=== PATIENT | male | born 1980 | race African-American/Black ===

== ENCOUNTER 2017-05-09 15:59 | Emergency (ER) | payer OTHER ==
[~2017-05-09] VITALS: Ht 193 cm; Wt 122.5 kg
[2017-05-09] MEDS ORDERED: GUAIFEN-CODEINE10 ML PO (17:23)
[2017-05-09] MEDS ORDERED: LISINOPRIL10 MG PO (17:23)
== END 2017-05-09 18:19 | disposition home or self-care (01) ==
LOC: ER 15:59
DX: R04.0 Epistaxis (principal); R09.81 Nasal congestion; I10 Essential (primary) hypertension

== ENCOUNTER 2017-05-11 06:32 | Emergency (ER) | payer OTHER ==
[~2017-05-11] VITALS: Ht 193 cm; Wt 120.2 kg
[~2017-05-11 06:32] MED LIST: GUAIFEN-CODEINE10 ML PO; LISINOPRIL10 MG PO
[2017-05-11] MEDS ORDERED: BACTRIM DS TAB1 EACH PO (07:04)
[2017-05-11 08:20] VITALS: BP 165/124
== END 2017-05-11 08:20 | disposition home or self-care (01) ==
LOC: ER 06:32
DX: R04.0 Epistaxis (principal); I10 Essential (primary) hypertension

== ENCOUNTER 2018-04-15 03:53 | Emergency (ER) | payer OTHER ==
[~2018-04-15] VITALS: Ht 193 cm; Wt 136.1 kg
[~2018-04-15 03:53] MED LIST changes: +BACTRIM DS TAB1 EACH PO
[2018-04-15] MEDS ORDERED: LISINOPRIL10 MG PO (04:38)
[2018-04-15 04:40] VITALS: BP 200/128
== END 2018-04-15 07:10 | disposition home or self-care (01) ==
LOC: ER 03:53
DX: R04.0 Epistaxis (principal); I10 Essential (primary) hypertension

== ENCOUNTER 2018-06-18 03:22 | Inpatient (IN) | payer OTHER ==
[2018-06-18] VITALS (9 sets, daily range): BP systolic 157–222; BP diastolic 122–157
[~2018-06-18] VITALS: Ht 193 cm; Wt 147.4 kg
[2018-06-18 04:40] LABS: ABSOLUTE NEUTROPHILS 6.2 thou/uL (1.4-8.2); BASOPHILS 1.2 % (0.0-2.0); EOSINOPHILS 2.8 % (0.0-3.0); HEMATOCRIT 39.8 % (42.0-52.0); HEMOGLOBIN 12.8 gm/dL (14.0-18.0); LYMPHOCYTES 16.1 % (24.0-44.0); MCH 27.4 pg (26.0-34.0); MCHC 32.1 g/dL (28.0-37.0); MCV 85.4 fL (80.0-100.0); MONOCYTES 6.6 % (1.0-8.0); PLATELET COUNT 172 thou/uL (150-400); POLYS 73.3 % (36.0-66.0); RBC 4.66 mil/uL (4.50-6.00); RDW 16.3 % (10.5-14.5); WBC 8.4 thou/uL (4.0-11.0)
[2018-06-18 04:48] LABS: CALCIUM 9.5 mg/dL (8.5-10.1); POTASSIUM 3.5 mmol/L (3.5-5.1)
[2018-06-18 04:56] LABS: TROPONIN-I 0.09 ng/mL (<0.06)
[2018-06-18 06:31] LABS: AMP/METHAMP Negative (Negative); BARBITURATES Negative (Negative); BENZODIAZEPINES Negative (Negative); COCAINE Negative (Negative); METHADONE Negative (Negative); OPIATES Negative (Negative); PCP Negative (Negative)
[2018-06-18 06:42] LABS: URINE BILIRUBIN NEGATIVE (Negative); URINE BLOOD 1+ (Negative); URINE CLARITY CLEAR; URINE COLOR YELLOW; URINE GLUCOSE-RANDOM* NEGATIVE (Negative); URINE KETONES NEGATIVE (Negative); URINE LEUKOCYTES NEGATIVE (Negative); URINE NITRITE NEGATIVE (Negative); URINE PROTEIN (DIPSTICK) 2+ (Negative)
[2018-06-18 06:45] LABS: BACTERIA None Seen /HPF (None Seen); CASTS None Seen /LPF (None Seen); CRYSTALS None Seen /LPF (None Seen); SQUAMOUS None Seen /LPF (0-3); URINE RBC 0-2 Rare /HPF (0-2); URINE WBC None Seen /HPF (0-5)
[2018-06-18 15:48] LABS: URINE BILIRUBIN 1+ (Negative); URINE BLOOD TRACE (Negative); URINE CLARITY CLEAR; URINE COLOR YELLOW; URINE GLUCOSE-RANDOM* TRACE (Negative); URINE KETONES NEGATIVE (Negative); URINE LEUKOCYTES-REFLEX NEGATIVE (Negative); URINE NITRITE-REFLEX NEGATIVE (Negative); URINE PROTEIN (DIPSTICK) 3+ (Negative)
[2018-06-18 15:53] LABS: ICTOTEST (BILI CONFIRMATORY) Positive (Negative)
[2018-06-18 16:01] LABS: HYALINE CASTS 4-10 Moderate /LPF (None Seen); MUCUS 0-3 Light strn/LPF (None Seen)
[2018-06-18 16:02] LABS: BACTERIA-REFLEX None Seen /HPF (None Seen); CRYSTALS None Seen /LPF (None Seen); SQUAMOUS None Seen /LPF (0-3); URINE RBC 0-2 Rare /HPF (0-2); URINE WBC-REFLEX 0-5 Rare /HPF (0-5)
--- NOTE | 2018-06-18 17:25 | NUR ---
ASSUMED CARE AT 0715. PATIENT IN BED AWAKE AND ALERT. NO COMPLAINTS OF HEADACHE, DIZZINESS, NAUSEA OR CP. SBP 190'S BUT PATIENT DOES NOT FEEL BAD. CONCERNED WITH HIS SWOLLEN ANKLES. HAS A CONVERSATION ABOUT HIS NEED TO TAKE HIS MEDICATION AND CHECK HIS BLOOD SUGAR. HE WANTS TO BE COMPLIANT BUT DOES NOT HAVE INSURANCE AND NO PCP. BLANKET INSPECTOR CONSULTED TO SEE IS THERE IS ANY ASSISTANCE HE COULD QUALIFY FOR. HE IS UP AD DIANNA AND GETTING LASIX. WILL CONTINUE TO MONITOR BLOOD PRESSURE AND TREAT SBP>160
[2018-06-19 00:12] VITALS: BP 164/110
[2018-06-19 03:01] LABS: HEMATOCRIT 39.4 % (42.0-52.0); HEMOGLOBIN 12.5 gm/dL (14.0-18.0); MCHC 31.8 g/dL (28.0-37.0); MCV 84.8 fL (80.0-100.0); RBC 4.65 mil/uL (4.50-6.00); WBC 6.8 thou/uL (4.0-11.0)
[2018-06-19 03:16] LABS: ALBUMIN 3.1 g/dL (3.4-5.0); CALCIUM 8.9 mg/dL (8.5-10.1); CREATININE 1.7 mg/dL (0.7-1.3); POTASSIUM 3.2 mmol/L (3.5-5.1); TOTAL BILIRUBIN 2.5 mg/dL (<0.1-1.0); TOTAL PROTEIN 7.9 g/dL (6.4-8.2)
[2018-06-19 04:55] VITALS: BP 181/118
--- NOTE | 2018-06-19 05:37 | NUR ---
ASSUMED PT CARE AT 1900. PT A/OX4, VITAL SIGNS STABLE, BLOOD PRESSURE ELEVATED BUT MANAGED WITH BLOOD PRESSURE MEDICATION. ASSESSMENT CHARTED. NO COMPLAINTS OF PAIN, CHEST PAIN, OR SOB. PT RESTED COMFORTABLY, THROUGH THE NIGHT. PROGRESSING TOWARD PLAN OF CARE. WILL CONTINUE TO MONITOR.
--- NOTE | 2018-06-19 08:49 | EKG ---
[place] [address] [place] [address] ELECTROCARDIOGRAM REPORT Name: KATHRYN CARDONA Room #: 214-P ADM IN M.R.#: [id number] ������������������ Admission: 06/18/18 ������������������ Attend Phys: Jose A Payan MD Discharge: ������������������ Date of : 82 Report #: [id number] ����������������������������������������������������������������� [id number] THIS REPORT FOR: //name// [facility] ED Test Date: 2018-06-18 Test Time: 04:39:25 Pat Name: KATHRYN CARDONA Department: Room: 214 Gender: M Pss Delivery Professional: BRAD : 1980 Requested By: Marilee Mena Order Number: [id number] MD: Hai Joyner Measurements Intervals [place] Rate: 105 P: 20 WV: 169 QRS: -39 QRSD: 99 T: 132 QT: 391 QTc: 517 Interpretive Statements Sinus tachycardia Left atrial enlargement Inferior infarct, old Poor R wave progression Prolonged QT interval Baseline wander in lead(s) V4 No previous ECG available for comparison Electronically Signed On 06-19-2018 8:49:16 CDT by Hai Joyner [email or web address] ��������������������������������������������� <ELECTRONICALLY SIGNED> ���������������������������������������� By: Hai Joyner MD, [facility] ��������������������������������������������� 06/19/18 0849 0439 [id number] Hai Joyner MD, [facility] /EPI
--- NOTE | 2018-06-19 12:12 | 2DMMODE ---
[facility] [address] [place] [address] 2 D/M-MODE ECHOCARDIOGRAM Name: BRENDANKATHRYN Room #: 214-P ADM IN M.R.#: [id number] ������������� Admission: 06/18/18 ������������� Attend Phys: Siva Vargas Discharge: ��� ������������� ��� Date of : 82 Date of Service: 06/19/18 1212 �� Report #: [id number] �������� ��������������������������������������������[id number] THIS REPORT FOR: //name// APPROVED REPORT Study performed: 06/19/2018 11:07:12 EXAM: Comprehensive 2D, Doppler, and color-flow Echocardiogram Patient Location: Echo lab Room #: [facility] Status: routine BSA: 2.71 HR: 97 bpm BP: 181/118 mmHg Rhythm: Regular Other Information Study Quality: Good Indications Leg edema, CHF. Hx: HTN, DM. 2D Dimensions RVDd: 47.91 mm IVSd: 15.00 (7-11mm) LVOT Diam: 25.00 (18-24mm) LVDd: 56.00 mm PWd: 15.00 (7-11mm) Ascending Ao: 40.00 (22-36mm) LVDs: 48.00 (25-40mm) Aortic Root: 41.20 mm Volumes Left Atrial Volume (Systole) Single Plane 4CH: 90.62 mL Single Plane 2CH: 85.68 mL LA ESV Index: 36.00 mL/m2 Aortic Valve AoV Peak Rajeev.: 1.24 m/s AO Peak Gr.: 6.16 mmHg LVOT Max P.57 mmHg LVOT Max V: 0.80 m/s KWASI Vmax: 3.05 cm2 Mitral Valve MV Decel. Time: 230.91 ms MV E Max Rajeev.: 0.90 m/s IVRT: 87.66 ms [facility] [address] [place] [address] 2 D/M-MODE ECHOCARDIOGRAM Name: KATHRYN CARDONA Room #: 214-[facility] IN ..#: [id number] ������������� Admission: 06/18/18 ������������� Attend Phys: Siva Vargas Discharge: ��� ������������� ��� Date of : 82 Date of Service: 06/19/18 1212 �� Report #: [id number] �������� ��������������������������������������������[id number] Pulmonary Valve PV Peak Rajeev.: 0.70 m/s PV Peak Gr.: 1.97 mmHg Tricuspid Valve TR Peak Rajeev.: 3.03 m/s RAP Estimate: 15.00 mmHg TR Peak Gr.: 36.64 mmHg PA Pressure: 50.00 mmHg Left Ventricle The left ventricle is normal size. Moderate concentric left ventricular hypertrophy. Left ventricular systolic function is moderately decreased. LVEF is 35-40%. This study is not technically sufficient to allow evaluation of the LV diastolic function. Right Ventricle Right ventricle is mildly dilated. Right ventricle is hypokinetic. Atria Left atrium is mildly dilated. Right atrium is mildly dilated. Aortic Valve The aortic valve is normal in structure. No aortic regurgitation is present. There is no aortic valvular stenosis. Mitral Valve The mitral valve is normal in structure. Trace mitral regurgitation. Tricuspid Valve The tricuspid valve is normal in structure. Mild to moderate tricuspid regurgitation. Estimated PAP is 50mmHg. Pulmonic Valve The pulmonary valve is normal in structure. Mild pulmonic regurgitation. Great Vessels Aortic root is mildly dilated. The ascending aorta is mildly dilated. IVC is dilated and collapses <50% with inspiration. Pericardium Trivial pericardial effusion. [facility] [address] [place] [address] 2 D/M-MODE ECHOCARDIOGRAM Name: CARDONACATHYKATHRYN Room #: 214-P [facility] IN M.R.#: [id number] ������������� Admission: 06/18/18 ������������� Attend Phys: Siva Vargas Discharge: ��� ������������� ��� Date of : 82 Date of Service: 06/19/18 1212 �� Report #: [id number] �������� ��������������������������������������������[id number] <Conclusion> The left ventricle is normal size. Moderate concentric left ventricular hypertrophy. LVEF is 35-40%. Right ventricle is mildly dilated. Right ventricle is hypokinetic. Left atrium is mildly dilated. Right atrium is mildly dilated. The aortic valve is normal in structure. The mitral valve is normal in structure. Trace mitral regurgitation. The tricuspid valve is normal in structure. Mild to moderate tricuspid regurgitation. Estimated PAP is 50mmHg. The pulmonary valve is normal in structure. Mild pulmonic regurgitation. Aortic root is mildly dilated. The ascending aorta is mildly dilated. Trivial pericardial effusion. ��������������������������������������������� <ELECTRONICALLY SIGNED> ���������������������������������������� By: Colton Oviedo MD ��������������������������������������������� 06/19/18 121 11 11 Colton Oviedo MD /INF
[2018-06-19 12:17] VITALS: BP 166/109
--- NOTE | 2018-06-19 13:08 | NUR ---
Nutrition: Pt admitted with bilateral leg edema. Seen for BMI 43=class III obesity. Hx of DM, htn. States appetite is okay with 75% intake. UBW 290 lbs, current 322 lbs. Diuresing, wt increase could be related to edema/fluid. DM uncontrolled due to no health insurance/PCP. BG 135-237. Requested Diabetic Diet information, will provide as well as low sodium diet information due to htn. Food preferences taken. Low nutrition risk.
[2018-06-19 16:00] VITALS: BP 170/114
--- NOTE | 2018-06-19 16:51 | NUR ---
Patient admits with CHF. He resides at home with mother. His mom with recent stroke, rec rehab, home health and now transition to outpatient therapy at [facility]. Son was driving her to/from therapy but sister also helps. patient with no PCP or Health insurance. Reviewed with [facility] information and referral to [facility]. Patient currently not working but will be working at [employer] at the end of the month. casemgt following for dc needs.
[2018-06-19 19:55] VITALS: BP 158/113
[2018-06-20 00:41] VITALS: BP 158/113
[2018-06-20 03:49] LABS: CALCIUM 8.6 mg/dL (8.5-10.1); CREATININE 2.1 mg/dL (0.7-1.3); PHOSPHORUS 4.2 mg/dL (2.5-4.9); POTASSIUM 3.7 mmol/L (3.5-5.1)
[2018-06-20 04:35] VITALS: BP 175/127
--- NOTE | 2018-06-20 04:43 | NUR ---
ASSUMED PT CARE AT 1900. PT A/OX4, VITAL SIGNS STABLE, BLOOD PRESSURE IN THE 150'S. NO COMPLAINTS OF PAIN. PT RESTED WELL THROUGH THE NIGHT. PROGRESSING TOWARD PLAN OF CARE. WILL CONTINUE TO MONITOR.
[2018-06-20 08:00] VITALS: BP 184/133
[2018-06-20 12:00] VITALS: BP 176/121
[2018-06-20 16:00] VITALS: BP 162/111
--- NOTE | 2018-06-20 18:56 | NUR ---
ASSUMED CARE AT 0700. AWAKE AND ALERT, NPO FOR RENAL U/S. WILL NEED A CARDIAC CATH WHEN CREATINE COMES DOWN. NO COMPLAINTS TODAY.
[2018-06-20 19:58] VITALS: BP 173/128
[2018-06-21] VITALS (7 sets, daily range): BP systolic 149–181; BP diastolic 109–135
[2018-06-21 04:03] LABS: CALCIUM 8.8 mg/dL (8.5-10.1); CREATININE 2.5 mg/dL (0.7-1.3); PHOSPHORUS 4.5 mg/dL (2.5-4.9); POTASSIUM 3.9 mmol/L (3.5-5.1)
--- NOTE | 2018-06-21 05:15 | NUR ---
ASSUMED PT CARE AT 1900. VSS EXCEPT BP. WHICH HAS BEEN RUNNING HIGH MOST OF THE NIGHT. BP WAS 173/128 AT THE START OF SHIFT, METOPROLOL GIVEN, BP SLIGHTLY CAME DOWN TO 158/121 AROUND MIDNIGHT. THIS AM IT WENT BACK TO UP TO 175/128. PT REMAINS ASSYMPTOMATIC, REPORTS FEELING FINE. LASIX TO BE GIVEN THIS AM, EDEMA 3+ IN BILATERAL LEGS AND 2+ IN ANKLES AND FEET REMAINS. WILL CONTINUE TO MONITOR.
--- NOTE | 2018-06-21 16:54 | NUR ---
ASSESSMENT CHARTED - MEDS PER MAR - NO CO'S OF PAIN OR NAUSEA. PATRICK DIET AND FLUIDS. UP AD DIANNA IN ROOM - NO CO'S OF SOA WITH EXERTION. ACCUCHECKS CHARTED - COVERED PER SSI. NO CO'S AT THE PRESENT TIME - STATES COMFORTABLE.
[2018-06-22 04:41] LABS: ALBUMIN 2.8 g/dL (3.4-5.0); CALCIUM 8.4 mg/dL (8.5-10.1); CREATININE 2.3 mg/dL (0.7-1.3); PHOSPHORUS 4.9 mg/dL (2.5-4.9)
[2018-06-22 04:43] VITALS: BP 163/123
--- NOTE | 2018-06-22 05:13 | NUR ---
ASSESSMENT DOCUMENTED.PT RESTING IN NO ACUTE DISTRESS.A/OX4.HYPERTENSIVE THIS AM.CONT ON DIUESING WITH LASIX 80MG IVP,TOLERATING,GREAT UO.UP AD DIANNA.DENIES PAIN OR ANY DISTRESS AT THIS TIME.POC IS TO STABILIZE BP AND DIURESING.
[2018-06-22 07:29] VITALS: BP 168/121
[2018-06-22 15:13] VITALS: BP 138/961
[2018-06-22 21:47] VITALS: BP 156/108
[2018-06-23 03:37] VITALS: BP 158/118
--- NOTE | 2018-06-23 04:53 | NUR ---
ASSUMED PT CARE AT 1900. VSS. PT A&0X4. REMAINS ON 5ML OF LASIX DRIP. DIURESSING WELL. PT BLOOD PRESSURE APPEAR TO NOW BE UNDER CONTROL. 3+ [place] LEGS EDEMA STILL PRESENT. OTHERWISE, PT IS STABLE, NO COMPLAINS OF CARDIAC OR RESPIRTAORY DISTRESS, WILL CONTINUE TO MONITOR PER POC.
[2018-06-23 05:46] LABS: ALBUMIN 2.9 g/dL (3.4-5.0); CALCIUM 8.4 mg/dL (8.5-10.1); CREATININE 2.4 mg/dL (0.7-1.3); PHOSPHORUS 5.4 mg/dL (2.5-4.9)
[2018-06-23 11:26] VITALS: BP 147/105
[2018-06-23 14:05] LABS: RENIN < 0.167 ng/mL/hr (0.167-5.380)
--- NOTE | 2018-06-23 15:22 | NUR ---
Pt still on iv lasix and had part 2 of stress test today. If the pt is dc ready this weekend; recommend pt be dc'd with scripts for generic medications from the [facility] $4 list. CM available Tuesday if the pt needs help filling his scripts.
[2018-06-23 15:23] VITALS: BP 147/105
--- NOTE | 2018-06-23 16:00 | NUR ---
AAOX4. CALM, PLEASANT. SIGNIFICANT DIURESIS WITH LASIX DRIP. HTN PERSISTS; MEDICATIONS HAVE BEEN INCREASED AND ADDED FOR SAME. SLIDING SCALE INSULIN TO CONTROL BLOOD GLUCOSE. FREQUENT CHECKS; WILL CONTINUE TO MONITOR.
[2018-06-23 16:25] VITALS: BP 141/105
[2018-06-23 20:00] VITALS: BP 135/89
[2018-06-24 04:00] VITALS: BP 148/98
--- NOTE | 2018-06-24 05:42 | NUR ---
ASSUMED PT CARE AT 1900. VSS. PT A&0X4. PT BP IS GETTING BETTER LAST NIGHT IT WAS 135/89 AND THIS MORNING IT WAS 145/98. PT STILL HAS LASIX DRIP GOING, HE GOT OVER 3OOOMLS OUT THIS SHIFT. PT IS STABLE, DENIES PAIN OR DISCOMFORT. RESTED WELL ALL NIGHT WILL CONTINUE TO MONITOR.
[2018-06-24 05:53] LABS: ALBUMIN 2.8 g/dL (3.4-5.0); CALCIUM 8.4 mg/dL (8.5-10.1); CREATININE 2.3 mg/dL (0.7-1.3); PHOSPHORUS 5.1 mg/dL (2.5-4.9); POTASSIUM 3.7 mmol/L (3.5-5.1)
[2018-06-24 08:00] VITALS: BP 164/111
[2018-06-24 12:00] VITALS: BP 142/102
[2018-06-24 16:00] VITALS: BP 147/68
--- NOTE | 2018-06-24 16:46 | NUR ---
ASSUMED CARE OF PT AT 0700. PT A&OX4, UP AD DIANNA. PT WAS SINUS RHYTHM WITH 1D ON TELEMETRY. PT BLOOD PRESSURE HIGH AND SCHEDULED BLOOD PRESSURE MEDS GIVEN. PT DIURESING WITH LASIX DRIP AND EDEMA HAS IMPROVED. PT DENIES SHORTNESS OF AIR. WILL CONT WITH POC
[2018-06-25 04:00] VITALS: BP 148/104
[2018-06-25 05:41] LABS: ALBUMIN 2.9 g/dL (3.4-5.0); CALCIUM 8.7 mg/dL (8.5-10.1); CREATININE 2.4 mg/dL (0.7-1.3); PHOSPHORUS 4.8 mg/dL (2.5-4.9); POTASSIUM 3.8 mmol/L (3.5-5.1)
[2018-06-25 08:00] VITALS: BP 156/116
[2018-06-25 11:09] LABS: ALDOSTERONE 7.2 ng/dL (0.0-30.0)
[2018-06-25 12:00] VITALS: BP 140/105
--- NOTE | 2018-06-25 15:53 | NUR ---
ASSUMED CARE OF PT AT 0700. PT IS A&OX4, UP AD DIANNA. PT HAD HIGH BLOOD PRESSURE AND SCHEDULED BLOOD PRESSURE MEDS GIVEN. PT CONTINUES TO DIURESE WITH LASIX DRIP. DR. SULLIVAN ORDERED SUPPLEMENTAL POTASSIUM. PT WAS SINUS RHYTHM WITH 1D ON TELEMETRY. WILL CONT WITH POC.
[2018-06-25 15:55] VITALS: BP 126/87
[2018-06-25 20:15] VITALS: BP 126/78
--- NOTE | 2018-06-26 04:40 | NUR ---
ASSESSMENT DOCUMENTED.PT RESTING IN NO ACUTE DISTRESS.A/OX4.BLOOD PRESSURE STABILIZING.CONT ON LASIX DRIP,DIURESING WELL W/LARGE URINE OUTPUT.AFEBRILE.DENIES PAIN OR ANY DISTRESS AT THIS TIME.POC IS TO CONTINUE TO DIURESE.WILL CONT TO MONITOR PER POC.
[2018-06-26 04:51] VITALS: BP 152/97
[2018-06-26 05:55] LABS: ALBUMIN 2.9 g/dL (3.4-5.0); CALCIUM 8.8 mg/dL (8.5-10.1); CREATININE 2.4 mg/dL (0.7-1.3); PHOSPHORUS 4.7 mg/dL (2.5-4.9); POTASSIUM 3.9 mmol/L (3.5-5.1)
[2018-06-26 08:36] VITALS: BP 153/111
--- NOTE | 2018-06-26 11:28 | NUR ---
F/U: Acute diastolic heart failure secondary to htn noted per EMR. Still diuresing, on IV lasix drip. Edema present in bilateral feet and legs 2+. Wt trending down. 06/23 wt 325 lbs, todays wt 313 lbs and 309 lbs. Likely fluid related. Pt states appetite is good with 50% intake depending on the food being served. BG 122-225, on carb controlled diet and SSI. Continue low risk.
[2018-06-26 12:00] VITALS: BP 141/104
[2018-06-26 17:36] VITALS: BP 140/95
--- NOTE | 2018-06-26 18:28 | NUR ---
PT ALERT AND ORIENTED. DENIED HAVING PAIN OR DISCOMFORT. ON LASIX DRIP. NO CONCERNS AT THIS TIME. WILL CONTINUE TO MONITOR.
[2018-06-26 19:50] VITALS: BP 148/95
[2018-06-27 00:22] VITALS: BP 132/93
--- NOTE | 2018-06-27 04:10 | NUR ---
ASSESSMENT DOCUMENTED.PT RESTING IN NO ACUTE DISTRESS.A/OX4.CONT ON LASIX DRIP PER DR'S ORDERS.PT DIURESING WELL.BLOOD PRESSURE STABILIZING.VSS.PT DENIES ANY NEEDS AT THIS TIME.POC IS TO CONT ON LASIX DRIP.WILL CONT TO MONITOR PER POC.
[2018-06-27 04:23] LABS: ALBUMIN 3.1 g/dL (3.4-5.0); CALCIUM 8.9 mg/dL (8.5-10.1); CREATININE 2.6 mg/dL (0.7-1.3); PHOSPHORUS 4.6 mg/dL (2.5-4.9); POTASSIUM 4.2 mmol/L (3.5-5.1)
[2018-06-27 05:32] VITALS: BP 145/99
[2018-06-27 07:09] VITALS: BP 147/96
[2018-06-27 11:17] VITALS: BP 121/82
[2018-06-27 16:13] VITALS: BP 136/92
--- NOTE | 2018-06-27 18:21 | NUR ---
ASSUMED CARE AT SHIFT CHANGE, ALERT AND ORIENTED X4. SR ON THE MONITOR, BP WNL AND AFEBRILE. PROGRESSING TOWARD GOALS AND WILL CONTINUE WITH POC.
[2018-06-27 19:31] VITALS: BP 124/91
--- NOTE | 2018-06-28 03:06 | NUR ---
RECEIVED PT'S CARE AT 1920; PT. AOX4; ON BED; RELATIVES AT THE BED SIDE DURING SHIFT CHANGE; ON ASSESSMENT NO C/O PAIN; ST. ABLE TO AMBULATE INDEPENDENTLY; EDUCATED ABOUT FALL PREVENTION; ST. UNDERSTANDING; ABLE TO REST THROUGH THE NIGHT WITH EYES CLOSE; ASSESSMENT CHARGED; FOLLOWING POC; WILL KEEP MONITORING; WILL PASS ON REPORT.
[2018-06-28 03:21] LABS: ALBUMIN 2.8 g/dL (3.4-5.0); CALCIUM 8.7 mg/dL (8.5-10.1); CREATININE 2.6 mg/dL (0.7-1.3); PHOSPHORUS 5.1 mg/dL (2.5-4.9); POTASSIUM 4.4 mmol/L (3.5-5.1)
[2018-06-28 05:35] VITALS: BP 147/99
[2018-06-28 07:27] VITALS: BP 148/106
[2018-06-28] MEDS ORDERED: BENICAR20 MG PO (10:43)
[2018-06-28] MEDS ORDERED: DEMADEX20 MG PO (10:43)
[2018-06-28] MEDS ORDERED: CARVEDILOL25 MG PO (10:43)
[2018-06-28] MEDS ORDERED: METOLAZONE 2.52.5 MG PO (10:43)
[2018-06-28 11:31] VITALS: BP 133/97
[2018-06-28 11:57] VITALS: BP 133/97
[2018-06-28 12:05] VITALS: BP 147/105
--- NOTE | 2018-06-28 15:29 | NUR ---
ASSESSMENT CHARTED, VSS, ALERT AND ORIENTED, PATIENT DISCHARGED TO HOME, GIVEN DISCHARGE INSTRUCTIONS, STATED UNDERSTANDING.
--- NOTE | 2018-06-28 16:51 | NUR ---
Patient to dc home. Arranged f/u cardiology apt with [facility]. Apt TuesdayJuly 01 at 11:00. Patient aware. Cardiology clinic at [place] believes he may have been a patient with them in 2012 for heart failure. Vouched medications in amount in $59.58.
== END 2018-06-28 15:37 | disposition home or self-care (01) | DRG 291 ==
LOC: ER 03:22 → 2N 05:30 → EROBS 05:30 → 2N 06:26 → ENTRNSPT 06-28 15:25 → EDTRNSPTSTS 06-28 15:35 → 2N 06-28 15:37
PROVIDERS: Emergency Medicine; Hospitalist; Student in an Organized Health Care Education/Training Program; ADMIT Family Medicine
DX: I13.0 Hypertensive heart and chronic kidney disease with heart failure and stage 1 through stage 4 chronic kidney disease, or unspecified chronic kidney disease (principal); I50.43 Acute on chronic combined systolic (congestive) and diastolic (congestive) heart failure; I16.1 Hypertensive emergency; N17.9 Acute kidney failure, unspecified; I47.2 Ventricular tachycardia; I42.8 Other cardiomyopathies; E87.70 Fluid overload, unspecified; N18.9 Chronic kidney disease, unspecified; E11.22 Type 2 diabetes mellitus with diabetic chronic kidney disease; Z83.3 Family history of diabetes mellitus; Z82.49 Family history of ischemic heart disease and other diseases of the circulatory system; Z91.14 Patient's other noncompliance with medication regimen; Z79.899 Other long term (current) drug therapy
CPT/HCPCS: 10081

== ENCOUNTER 2018-07-09 18:59 | Inpatient (IN) | payer OTHER ==
[~2018-07-09] VITALS: Ht 193 cm; Wt 110.7 kg
--- NOTE | ~2018-07-09 | HC ---
[facility] [place] [address] CONSULTATION Name: KATHRYN CARDONA Room #: [facility]- ADM IN M.R.#: [id number] Admission: 07/09/18 ������������������ Attend Phys: Brian Gaona MD Discharge: ������������������ Date of : 82 Report #: [id number] THIS REPORT FOR: //name// CC: Brian Gaona [facility] physician/PCP DATE OF SERVICE: 07/10/2018 REASON FOR CONSULTATION: Elevated creatinine. HISTORY OF PRESENT ILLNESS: This is a 38-year-old male who was just here in [facility] from 06/18 through 06/28/2018. He was seen in consultation at that time by Dr. Barfield of our group. He was diagnosed with chronic kidney disease due to diabetic nephropathy and hypertension. When he presented, his blood pressure was out of control. His presenting creatinine was 2.0. He was put on a regimen to control his blood pressure, including some carvedilol a very high dose of 50 mg b.i.d. and some olmesartan 40 mg daily. He was diuresed with torsemide and went home on a dose of 40 mg b.i.d. as well as some metolazone 2.5 mg every other day. He went home on that regimen and felt well. He said he was losing lots of weight with the effect of diuresis. He was feeling better, but then a few days ago began feeling lightheaded and dizzy. This persisted and included some weakness. When this persisted, he came back to the Emergency Room yesterday. Reviewing the available records, his blood pressure on original presentation was down to 114/76 and there was some concern he was volume depleted. He was given some IV fluids and then his blood pressure shanell and was back into 170/100 range. He was started back on his carvedilol last night. This morning, his blood pressure is 119/77. States he is feeling a bit better. The admitting team stopped his angiotensin receptor amos on to the concern that it was "a nephrotoxin." His diuretics were stopped, which was appropriate. PAST MEDICAL HISTORY: Diabetes mellitus and hypertension, both dating back some time and the exact onset is unknown. He has been a bit irregular on his medical care. He has chronic kidney disease as noted above, little other medical history. MEDICATIONS ON ADMISSION: Included the carvedilol 50 mg b.i.d., olmesartan 40 mg daily, torsemide 40 mg b.i.d. and metolazone 2.5 mg every other day. FAMILY HISTORY: Strongly positive. His mother has hypertension and a recent CVA. His sister has diabetes, hypertension and end-stage renal disease. She has been on dialysis for several years. SOCIAL HISTORY: The patient is single, lives with his mother and sister in [place], [place]. Currently not working. REVIEW OF SYSTEMS: He states his edema has gotten much better. His dyspnea has [facility] [address] [place] [address] CONSULTATION Name: KATHRYN CARDONA Room #: 207-P [facility] IN Siva.R.#: [id number] Admission: 07/09/18 ������������������ Attend Phys: Brian Gaona MD Discharge: ������������������ Date of : 82 Report #: [id number] also improved. No orthopnea or PND over recent days. The main problem has been the onset of the lightheadedness, dizziness and weakness. Appetite has dropped mildly. Denies nausea or vomiting. No diarrhea. No difficulty voiding urine. He is unaware of fevers, chills or sweats. No rashes. PHYSICAL EXAMINATION: GENERAL: A 38-year-old male, awake, alert and oriented. He looks fairly well at this time. VITAL SIGNS: Blood pressure 119/77, heart rate 78, temperature 97.0, respiratory rate 18, oxygen saturation 99%. HEENT: Shows pupils are equal and reactive. Sclerae nonicteric. Oral mucosa is moist. NECK: Supple without adenopathy, thyromegaly, JVD or bruit. CHEST: Clear bilaterally in all lung brunson. BACK: Shows no CVA tenderness. CARDIOVASCULAR: Heart has a regular rate and rhythm. No murmur, gallop or rub. ABDOMEN: Has active bowel sounds, is soft and nontender. EXTREMITIES: Show 2+ peripheral pulses. He is free of edema. LABORATORY DATA: From the Emergency Room, sodium 139, potassium 3.6, chloride 99, bicarbonate 32, BUN 83, creatinine 3.8, which was up from 2.6 which was his discharge creatinine 11 days ago. Glucose 192, calcium 9.9, total protein 9.1, albumin 3.7. White count 8.1, hemoglobin 13.8, hematocrit 42.0, platelets 197,000. Urinalysis: Specific gravity 1.010, pH 7.0, 2+ protein. Negative dipstick and negative micro, otherwise. ASSESSMENT: 1. Chronic kidney disease stage 3. He has diabetic nephropathy with a substantial history of diabetes and hypertension. He was started on appropriate therapy during his admission a couple of weeks ago. At that time, he is very volume overloaded and diuresed readily. In reviewing the weights, and it depends upon which scale and which weight has taken, it looks like he is down 60-80 pounds since that admission. He certainly looks good from a volume standpoint at this time. With that and the appropriate angiotensin receptor amos therapy, his blood pressure has dropped. His creatinine has risen somewhat as an effect of the hemodynamic change. This was to be expected. He has nothing to suggest true acute kidney injury at this time. He certainly was not on any nephrotoxins as angiotensin receptor blockers are appropriate therapy for this. The hemodynamic changes are protective and not nephrotoxic. I have reviewed this with the patient so he gains understanding of that. His volume is much better and I think that we can cut back substantially on his diuretics. In fact, he needs no diuretics at this time. Going home, will need some long-term, though we should be able to get by with either once daily loop diuretic in the form of torsemide at a lower dose than before or even potentially a thiazide diuretic. That will need to be worked on down the line. He does not need the metolazone anymore at this time. [facility] [address] [facility] [place] [address] CONSULTATION Name: KATHRYN CARDONA Room #: 207-P ADM IN M.R.#: [id number] Admission: 07/09/18 ������������������ Attend Phys: Brian Gaona MD Discharge: ������������������ Date of : 82 Report #: [id number] 2. Diabetes mellitus. 3. Hypertension, labile. We can see there with some IV fluids, his blood pressure went back to high and he was restarted on the carvedilol. I am wondering if he will still need the full 50 mg b.i.d. of carvedilol at home or if we can get by on a more standard dose of 25 mg b.i.d. plus the olmesartan. PLAN: 1. We can stop his IV fluids at this time. 2. Resume his angiotensin receptor amos. Here in the hospital, we will use losartan 100 mg daily and start it this evening. 3. Continue carvedilol for this time. 4. In the next day or two, we will need to get him back on some diuretic. I would recommend starting with torsemide either 20 mg or 40 mg once a day without any metolazone. The other potential would be to use the thiazide. 5. Low sodium diet. 6. We will follow along the care of this very pleasant patient who is at very high risk, not only because of his underlying problems, but also in association with his very strong family history. ��������������������������������������������� ���������������������������������������� By: ��������������������������������������������� 1207 34 Agustín Grimes MD /nt
[~2018-07-09 18:59] MED LIST changes: +BENICAR20 MG PO; +CARVEDILOL25 MG PO; +DEMADEX20 MG PO; +METOLAZONE 2.52.5 MG PO
[2018-07-09 19:38] VITALS: BP 114/76
[2018-07-09 20:16] LABS: ABSOLUTE NEUTROPHILS 5.8 thou/uL (1.4-8.2); BASOPHILS 1.2 % (0.0-2.0); EOSINOPHILS 2.3 % (0.0-3.0); HEMOGLOBIN 13.8 gm/dL (14.0-18.0); LYMPHOCYTES 16.4 % (24.0-44.0); MCH 27.2 pg (26.0-34.0); MCHC 32.9 g/dL (28.0-37.0); MCV 82.7 fL (80.0-100.0); MONOCYTES 8.3 % (1.0-8.0); PLATELET COUNT 197 thou/uL (150-400); POLYS 71.8 % (36.0-66.0); RBC 5.08 mil/uL (4.50-6.00); WBC 8.1 thou/uL (4.0-11.0)
[2018-07-09 20:22] LABS: CALCIUM 9.9 mg/dL (8.5-10.1); CREATININE 3.8 mg/dL (0.7-1.3); POTASSIUM 3.6 mmol/L (3.5-5.1)
[2018-07-09 20:24] LABS: URINE BILIRUBIN NEGATIVE (Negative); URINE BLOOD NEGATIVE (Negative); URINE CLARITY CLEAR; URINE COLOR YELLOW; URINE GLUCOSE-RANDOM* NEGATIVE (Negative); URINE KETONES NEGATIVE (Negative); URINE LEUKOCYTES-REFLEX TRACE (Negative); URINE NITRITE-REFLEX NEGATIVE (Negative); URINE PROTEIN (DIPSTICK) 2+ (Negative)
[2018-07-09 20:28] LABS: ALBUMIN 3.7 g/dL (3.4-5.0); TOTAL BILIRUBIN 1.2 mg/dL (<0.1-1.0); TOTAL PROTEIN 9.1 g/dL (6.4-8.2)
[2018-07-09] MEDS ORDERED: LIPITOR 20 MG T20 M1 PO (20:33)
[2018-07-09 20:38] LABS: BACTERIA-REFLEX None Seen /HPF (None Seen); CASTS None Seen /LPF (None Seen); CRYSTALS None Seen /LPF (None Seen); MUCUS 0-3 Light strn/LPF (None Seen); SQUAMOUS None Seen /LPF (0-3); URINE RBC 0-2 Rare /HPF (0-2); URINE WBC-REFLEX 0-5 Rare /HPF (0-5)
[2018-07-09 21:56] VITALS: BP 175/106
[2018-07-09 22:17] VITALS: BP 175/109
[2018-07-09 22:43] VITALS: BP 171/104
[2018-07-09 22:44] VITALS: BP 157/110
[2018-07-10 01:30] VITALS: BP 157/110
--- NOTE | 2018-07-10 02:51 | NUR ---
ADMIT FROM ED AROUND 2229. CELLULAR PLASTICS CUTTER SAW PT IN ED. VSS. ASSESSMENT CHARTED. CAME TO ED WITH LUQ PAIN MADDI. PT DENIES PAIN, N/V, DIZZINESS THIS SHIFT. MEDS AND FLUIDS PER EMAR. PT STEADY ON FEET BUT STBY FOR NOW TO ASSESS, PT STATES HE HAS DIZZINESS WITH SOME OF HIS DIURETIC MEDS AT HOME. SLEEPING WELL THROUGHOUT THE NIGHT. PLAN FOR LABS THIS AM. WILL CONTINUE TO MONITOR AND WITH POC.
[2018-07-10 03:33] LABS: CALCIUM 9.2 mg/dL (8.5-10.1); CREATININE 3.4 mg/dL (0.7-1.3); POTASSIUM 3.3 mmol/L (3.5-5.1)
[2018-07-10 03:37] VITALS: BP 119/77
[2018-07-10 08:00] VITALS: BP 124/82
--- NOTE | 2018-07-10 09:36 | EKG ---
[address] [place] [address] ELECTROCARDIOGRAM REPORT Name: KATHRYN CARDONA Room #: 207-P ADM IN M.R.#: [id number] ������������������ Admission: 07/09/18 ������������������ Attend Phys: Brian Gaona MD Discharge: ������������������ Date of : 82 Report #: [id number] ����������������������������������������������������������������� [id number] THIS REPORT FOR: //name// [facility] ED Test Date: 2018-07-09 Test Time: 20:01:37 Pat Name: KATHRYN CARDONA Department: Room: 207 Gender: M Senior Care Manager: [email or web address] : 1980 Requested By: Yanique Richards Order Number: [id number] MD: Giovanny Grady Measurements Intervals [place] Rate: 69 P: 51 [place]: 190 QRS: -49 QRSD: 108 T: 112 QT: 452 QTc: 485 Interpretive Statements Sinus rhythm Probable left atrial enlargement Inferior infarct, old Nonspecific ST segment abnormality Compared to ECG 06/18/2018 04:39:25 Sinus tachycardia no longer present Prolonged QT interval no longer present Myocardial infarct finding still present Electronically Signed On 07-10-2018 9:35:50 CDT by Giovanny Grady [email or web address] ��������������������������������������������� <ELECTRONICALLY SIGNED> ���������������������������������������� By: Giovanny Grady MD ��������������������������������������������� 07/10/18 0935 00 00 Giovanny Grady MD /EPI
[2018-07-10 16:00] VITALS: BP 135/96
--- NOTE | 2018-07-10 17:37 | NUR ---
ASSESSMENT CHARTED - MEDS PER ROBERTO NGUYEN DIET AND FLUIDS. NO CO'S OF NASUEA. IV FLUIDS D/C'D ORDERED. PT UP IN ROOM - STEADY ON FEET- DOES HAVE FALL PRECAUTIONS INSITU DUE TO FALL PRIOR TO ADMISSION. NO CO'S AT THE PRESENT TIME.
[2018-07-10 20:57] VITALS: BP 156/102
[2018-07-11 04:45] VITALS: BP 139/86
[2018-07-11 06:14] LABS: ALBUMIN 3.1 g/dL (3.4-5.0); CREATININE 2.8 mg/dL (0.7-1.3); PHOSPHORUS 4.6 mg/dL (2.5-4.9); POTASSIUM 3.5 mmol/L (3.5-5.1)
--- NOTE | 2018-07-11 06:31 | NUR ---
[facility] 1900. PT/VITALS STABLE. BP STABILIZED THROUGH THE NIGHT. DENIES ANY PAIN. PROGRESSING WELL WITH POC. ASSESSMENT CHARTED. PLAN IS TO CONTINUE TO MANAGE BLOOD PRESSURE AND KIDNEY FUNCTION. WILL CONTINUE TO MONITOR AND FOLLOW WITH POC
--- NOTE | 2018-07-11 07:45 | HC ---
[facility] [place] [address] CONSULTATION Name: KATHRYN CARDONA Room #: 207-P [facility] IN M.R.#: [id number] Admission: 07/09/18 ������������������ Attend Phys: Brian Gaona MD Discharge: ������������������ Date of : 82 Report #: [id number] THIS REPORT FOR: //name// CC: Brian Gaona [facility] physician/PCP DATE OF SERVICE: 07/10/2018 INDICATION: Dizziness. HISTORY OF PRESENT ILLNESS: This is a 38-year-old male with a history of hypertension, cardiomyopathy, chronic kidney disease, hyperlipidemia, diabetes mellitus, presenting with lightheadedness. He was recently admitted to [facility] for uncontrolled hypertension and congestive heart failure. A cardiac evaluation revealed a cardiomyopathy with EF in the 35-40% range. A nuclear stress test revealed no inducible ischemia, but evidence for prior myocardial scar. He did not report any clinical symptoms of angina. He was discharged home on multiple medications including Benicar, torsemide twice a day, Zaroxolyn and Benicar. He did follow up with a clinic at [facility]. Over the past 2 days, he reports having episodes of lightheadedness, especially with standing. He offers no complaints of angina, dyspnea, fever, chills, cough or orthopnea. ALLERGIES: None. MEDICATIONS: Include Coreg 50 mg b.i.d., Benicar 40 mg daily, torsemide 40 mg b.i.d., Zaroxolyn 2.5 mg every other day, and Lipitor 20 mg daily. PAST MEDICAL HISTORY: Hypertension, diabetes, cardiomyopathy, hyperlipidemia, chronic kidney disease. SOCIAL HISTORY: Negative for tobacco use. FAMILY HISTORY: Negative for premature CAD. REVIEW OF SYSTEMS: A full 10-point review of systems performed. Only the pertinent positives and negatives are described in the HPI. PHYSICAL EXAMINATION: VITAL SIGNS: Blood pressure is 130/70 and heart rate is 78 beats per minute. GENERAL APPEARANCE: This is a well-developed, well-nourished male in no acute distress. HEAD: Normocephalic, atraumatic. Oral mucosa is moist. NECK: Supple. LUNGS: Clear to auscultation. CARDIAC: Regular rate and rhythm, S1, S2 positive. [facility] [address] [place] [address] CONSULTATION Name: KATHRYN CARDONA Room #: [facility] IN M.R.#: [id number] Admission: 07/09/18 ������������������ Attend Phys: Brian Gaona MD Discharge: ������������������ Date of : 82 Report #: [id number] ABDOMEN: Soft, nontender. EXTREMITIES: No cyanosis. Trace edema. NEUROLOGIC: Alert and oriented x 3. LABORATORY VALUES: Sodium is 139 and creatinine is 3.8. White count is 8.1 and hemoglobin 13.8. Troponin is negative. ECG reveals sinus rhythm, inferior wall NE, nonspecific T-wave abnormality. ASSESSMENT AND PLAN: 1. Dizziness/orthostatic lightheadedness, probably attributed to low intravascular volume. He has been on the combination of torsemide 40 mg twice a day and metolazone every other day. Agree with holding these medications. Await Nephrology input. 2. Cardiomyopathy, stable with no evidence of dyspnea or orthopnea. Continue with blood pressure management. 3. Hypertension, labile blood pressure. Initially presented with a normal blood pressure, but noted to have an increase in his blood pressure readings. Would continue with Coreg at this time. His diuretic and ARB medication are on hold due to his acute on chronic kidney injury. May need to add amlodipine or hydralazine depending on his blood pressure response. 4. Acute kidney injury. His baseline creatinine was 2.4, now presents with 3.8, probably due to a decrease in his intravascular volume. As above, agree withholding his diuretics. Await Nephrology input. ��������������������������������������������� <ELECTRONICALLY SIGNED> ���������������������������������������� By: Giovanny Grady MD ��������������������������������������������� 07/11/18 0745 [id number] Giovanny Grady MD /nt
[2018-07-11 08:00] VITALS: BP 141/96
[2018-07-11 12:00] VITALS: BP 142/99; BP 185/72
[2018-07-11 15:44] LABS: PROT/CREAT RATIO 0.9; URINE CREATININE-RANDOM* 53.7 mg/dL
[2018-07-11 16:00] VITALS: BP 163/112
--- NOTE | 2018-07-11 17:28 | NUR ---
ASSESSMENT CHARTED - MEDS PER APR - COREG DOSE DECREASED THIS SHIFT AND PT STARTED ON DEMEDEX ORDERED. UP IN ROOM WITH STDBY ASSIST. ACCUCHECKS COVERED PER SSI. PATRICK DIET AND FLUIDS. NO CO'S AT THE PRESENT TIME.
[2018-07-11 20:15] VITALS: BP 154/91
--- NOTE | 2018-07-12 03:19 | NUR ---
ASSUMED CARE AROUND 1900. AXOX4. FALL PRECAUTION IN PLACE. DENIES ANY PAIN AT THIS TIME. NO S/S ACUTE DISTRESS NOTED OR REPORTED AT THIS TIME. WILL CONT TO MONITOR FOR ANY CHANGES IN CONDITION.
[2018-07-12 04:45] VITALS: BP 127/67
[2018-07-12 04:59] LABS: HEMATOCRIT 38.7 % (42.0-52.0); HEMOGLOBIN 12.6 gm/dL (14.0-18.0); MCH 27.3 pg (26.0-34.0); MCHC 32.6 g/dL (28.0-37.0); MCV 83.8 fL (80.0-100.0); RBC 4.62 mil/uL (4.50-6.00); RDW 15.3 % (10.5-14.5); WBC 7.8 thou/uL (4.0-11.0)
[2018-07-12 05:18] LABS: CALCIUM 9.3 mg/dL (8.5-10.1); CREATININE 2.7 mg/dL (0.7-1.3); PHOSPHORUS 4.3 mg/dL (2.5-4.9); POTASSIUM 3.5 mmol/L (3.5-5.1)
[2018-07-12 08:13] VITALS: BP 147/91
[2018-07-12] MEDS ORDERED: CARVEDILOL25 MG PO (14:08)
[2018-07-12] MEDS ORDERED: DEMADEX 2020 MG/1 TA PO (14:09)
[2018-07-12 15:20] VITALS: BP 133/88
[2018-07-12 15:51] VITALS: BP 133/88
--- NOTE | 2018-07-12 16:28 | NUR ---
ASSUMED CARE AT SHIFT CHANGED, ALERT AND ORIENTED SR ON THE MONITOR, VSS AND AFEBRILE. DISCHARGE AND MEDICATION INSTRUCTIONS GIVEN TO PATIENT, AND HE VERBALIZED UNDERSTANDING.
== END 2018-07-12 16:45 | disposition home or self-care (01) | DRG 683 ==
LOC: ER 18:59 → 2N 21:24 → EROBS 21:24 → 2N 22:19
PROVIDERS: Internal Medicine Nephrology; Nurse Practitioner Family; Physician Assistant; ADMIT Hospitalist
DX: N17.9 Acute kidney failure, unspecified (principal); I50.22 Chronic systolic (congestive) heart failure; I43 Cardiomyopathy in diseases classified elsewhere; I13.0 Hypertensive heart and chronic kidney disease with heart failure and stage 1 through stage 4 chronic kidney disease, or unspecified chronic kidney disease; I16.0 Hypertensive urgency; E11.22 Type 2 diabetes mellitus with diabetic chronic kidney disease; E78.5 Hyperlipidemia, unspecified; N18.3 Chronic kidney disease, stage 3 (moderate); E86.0 Dehydration; Z82.49 Family history of ischemic heart disease and other diseases of the circulatory system; Z83.3 Family history of diabetes mellitus; Z91.14 Patient's other noncompliance with medication regimen; Z79.899 Other long term (current) drug therapy
CPT/HCPCS: 10081

== ENCOUNTER 2018-12-20 01:04 | Emergency (ER) | payer OTHER ==
[~2018-12-20] VITALS: Ht 193 cm; Wt 124.7 kg
[~2018-12-20 01:04] MED LIST changes: +DEMADEX 2020 MG/1 TA PO; +LIPITOR 20 MG T20 M1 PO
[2018-12-20 02:28] LABS: BASOPHILS 0.8 % (0.0-2.0); EOSINOPHILS 1.5 % (0.0-3.0); HEMATOCRIT 36.8 % (42.0-52.0); HEMOGLOBIN 11.5 gm/dL (14.0-18.0); LYMPHOCYTES 10.8 % (24.0-44.0); MCH 27.7 pg (26.0-34.0); MCHC 31.4 g/dL (28.0-37.0); MCV 88.2 fL (80.0-100.0); MONOCYTES 7.2 % (1.0-8.0); PLATELET COUNT 216 thou/uL (150-400); POLYS 79.7 % (36.0-66.0); RBC 4.17 mil/uL (4.50-6.00); RDW 13.6 % (10.5-14.5); WBC 7.5 thou/uL (4.0-11.0)
[2018-12-20 02:31] LABS: CALCIUM 8.4 mg/dL (8.5-10.1); POTASSIUM 3.3 mmol/L (3.5-5.1)
[2018-12-20 02:37] LABS: ALBUMIN 3.6 g/dL (3.4-5.0); DIRECT BILIRUBIN 0.3 mg/dL (<0.1-0.3); TOTAL BILIRUBIN 0.8 mg/dL (<0.1-1.0); TOTAL PROTEIN 8.6 g/dL (6.4-8.2)
[2018-12-20 02:47] LABS: URINE BILIRUBIN NEGATIVE (Negative); URINE BLOOD TRACE (Negative); URINE CLARITY CLEAR; URINE COLOR YELLOW; URINE GLUCOSE-RANDOM* NEGATIVE (Negative); URINE KETONES NEGATIVE (Negative); URINE LEUKOCYTES-REFLEX NEGATIVE (Negative); URINE NITRITE-REFLEX NEGATIVE (Negative); URINE PROTEIN (DIPSTICK) 2+ (Negative); URINE UROBILINOGEN 0.2 E.U./dl (0.2-1.0)
[2018-12-20 02:56] LABS: BACTERIA-REFLEX 1-9 Few /HPF (None Seen); CRYSTALS None Seen /LPF (None Seen); HYALINE CASTS >10 Many /LPF (None Seen); MUCUS 0-3 Light strn/LPF (None Seen); SQUAMOUS 0-3 Few /LPF (0-3); URINE RBC 0-2 Rare /HPF (0-2); URINE WBC-REFLEX 0-5 Rare /HPF (0-5)
[2018-12-20 04:37] VITALS: BP 118/116
== END 2018-12-20 04:41 | disposition home or self-care (01) ==
LOC: ER 01:04
PROVIDERS: Emergency Medicine
DX: E11.649 Type 2 diabetes mellitus with hypoglycemia without coma (principal); I12.9 Hypertensive chronic kidney disease with stage 1 through stage 4 chronic kidney disease, or unspecified chronic kidney disease; E78.5 Hyperlipidemia, unspecified; E11.22 Type 2 diabetes mellitus with diabetic chronic kidney disease; N18.9 Chronic kidney disease, unspecified